=== PATIENT | female | born 1990 | race Caucasian/White ===

== ENCOUNTER 2020-05-28 05:03 | Emergency (ER) | payer BC ==
[2020-05-28] MEDS ORDERED: Fentanyl 100 MCG/2 ML VIAL ONE (05:09)
== END 2020-05-28 07:55 | disposition home or self-care (01) ==
LOC: ERS 05:03
DX: K42.9 Umbilical hernia without obstruction or gangrene (principal); E11.9 Type 2 diabetes mellitus without complications; I10 Essential (primary) hypertension; F17.290 Nicotine dependence, other tobacco product, uncomplicated; Z79.899 Other long term (current) drug therapy
CPT/HCPCS: 83605; 96374; J3010

== ENCOUNTER 2020-06-19 15:31 | Outpatient (CLI) | payer OTHER ==
--- NOTE | 2020-06-19 15:49 | RAD ---
Chest 2 views HISTORY: Cough. COMPARISON: 08/14/2015. FINDINGS: Cardiac silhouette and pulmonary vasculature are unremarkable. Mediastinum is midline. No confluent airspace consolidation, pneumothorax, or pleural fluid. IMPRESSION : No abnormalities are demonstrated.
== END 2020-06-19 15:32 | disposition home or self-care (01) ==
LOC: RAD-FRANK 15:31
PROVIDERS: ATTEND Nurse Practitioner Family
DX: R05 Cough (principal)
CPT/HCPCS: 71046

== ENCOUNTER 2023-05-19 20:13 | Inpatient (IN) | payer BC, SELFPAY ==
[2023-05-19] MEDS ORDERED: Glucagon 1 MG/ML KIT IM PRN (21:20)
[2023-05-19] MEDS ORDERED: Dextrose 5% in Water 1,000 ML IV PRN (21:20)
[2023-05-19] MEDS ORDERED: Ondansetron PF 4 MG/2 ML Vial IVP PRN (21:20)
[2023-05-19] MEDS ORDERED: Dextrose 50% Abboject 50 ML SYRINGE SLOW IVP PRN (21:20)
[2023-05-19] MEDS: D5 1/2 NS w/20 mEq KCL 1,000 ML IV SCH (21:37)
[2023-05-19] MEDS: Morphine 4 MG/ML VIAL SLOW IVP PRN (21:37)
[2023-05-19 22:42] VITALS: BMI 44.1
[2023-05-20] MEDS: Morphine 4 MG/ML VIAL SLOW IVP PRN ×4 (02:00→23:18)
[2023-05-20 05:05] LABS: #Basophils 0.1 thou/uL (0.0-0.2); #Eosinphils 0.5 thou/uL (0.0-0.7); #Monocytes 0.8 thou/uL (0.11-0.59); #Neutrophils 6.3 thou/uL (1.40-6.50); %Basophils 0.5 % (0.0-1.0); %Eosinophils 4.3 % (0.0-10.0); %Lymphocytes 33.9 % (21.0-51.0); %Monocytes 6.6 % (0.0-10.0); %Neutrophils 54.4 % (42.0-75.0); Hematocrit 40.3 % (36.0-47.0); Hemoglobin 13.2 g/dL (12.0-16.0); Mean Corpuscular HGB CONC 32.8 g/dL (32.0-36.0); Mean Corpuscular Hemoglobin 28.3 pg (27.0-31.0); Mean Corpuscular Volume 86.5 fl (78.0-98.0); Mean Platelet Volume 9.8 fL (7.4-10.4); Platelet Count 383 10x3/uL (130-400); RBC Distribution Width 12.5 % (11.5-14.5); Red Blood Cell (RBC) Count 4.66 mill/uL (4.20-5.40); White Blood Cell (WBC) Count 11.6 10x3/uL (4.8-10.8)
[2023-05-20 05:54] LABS: Anion Gap 13 mmol/L (10-20); BUN (Urea Nitrogen) 10 mg/dL (7.0-18.7); Calc. Creatinine Clearance 222 mL/min (70-130); Calcium 8.9 mg/dL (7.8-10.44); Carbon Dioxide 21 mmol/L (22-29); Chloride 105 mmol/L (98-107); Estimated GFR 118; Glucose 185 mg/dL (70-105); Potassium 3.7 mmol/L (3.5-5.1); Sodium 135 mmol/L (136-145)
[2023-05-20] MEDS ORDERED: EPINEPHrine 1 MG/ML VIAL ONE (06:42)
[2023-05-20] MEDS ORDERED: Bupivacaine 0.25% HCL 30 ML VIAL ONE (06:42)
[2023-05-20] MEDS ORDERED: Glucagon 1 MG/ML KIT IM PRN (06:58)
[2023-05-20] MEDS ORDERED: HumaLOG 300 UNITS/3 ML VIAL SC PRN (06:58)
[2023-05-20] MEDS ORDERED: Dextrose 50% Abboject 50 ML SYRINGE SLOW IVP PRN (06:58)
[2023-05-20] MEDS ORDERED: Dextrose 5% in Water 1,000 ML IV PRN (06:58)
[2023-05-20] MEDS ORDERED: Ipratropium/Albuterol 3 ML NEB NEB PRN (06:58)
[2023-05-20] MEDS: D5 1/2 NS w/20 mEq KCL 1,000 ML IV SCH ×2 (07:00→16:19)
[2023-05-20] MEDS ORDERED: Dexamethasone 4 mg/ml Vial ONE (07:17)
[2023-05-20] MEDS ORDERED: Lidocaine 2% PF 5 ML VIAL ONE (07:17)
[2023-05-20] MEDS ORDERED: PROPOFOL 40 ML ONE ×2 (07:17→08:00)
[2023-05-20] MEDS ORDERED: Ondansetron PF 4 MG/2 ML Vial ONE ×2 (07:17→07:38)
[2023-05-20] MEDS ORDERED: Rocuronium Bromide 10 MG/ML (10ML VIAL) ONE ×2 (07:17→07:38)
[2023-05-20] MEDS ORDERED: Albuterol HFA (OR) 200 PUFF INH ONE ×2 (07:17→07:38)
[2023-05-20] MEDS ORDERED: Fentanyl 250 MCG/5 ML VIAL ONE ×2 (07:18→09:58)
[2023-05-20] MEDS ORDERED: Midazolam HCl 2 mg/2 ml Vial ONE (07:22)
[2023-05-20] MEDS ORDERED: CEFAZOLIN 2 GM VIAL ONE (07:25)
[2023-05-20] MEDS ORDERED: Sodium Chloride 0.9% 100 ML ONE (07:26)
[2023-05-20] MEDS ORDERED: diphenhydrAMINE 50 MG/ML VIAL ONE ×2 (07:30→07:38)
[2023-05-20] MEDS ORDERED: SUGAMMADEX SODIUM 200 MG/2 ML VIAL ONE ×2 (07:32→09:07)
[2023-05-20] MEDS ORDERED: Dexamethasone 20 MG/5 ML VIAL ONE (07:38)
[2023-05-20] MEDS ORDERED: PROPOFOL 200 MG/20 ML VIAL ONE (07:38)
[2023-05-20] MEDS ORDERED: Lidocaine 1% PF 5 ML VIAL ONE (07:38)
[2023-05-20] MEDS ORDERED: HYDROmorphone 2 MG/ML VIAL SLOW IVP PRN (08:08)
[2023-05-20] MEDS ORDERED: Promethazine HCl 25 MG/ML VIAL IM PRN (08:08)
[2023-05-20] MEDS ORDERED: Ondansetron HCl/PF 4 MG/2 ML Vial IVP PRN (08:08)
[2023-05-20] MEDS ORDERED: PACU-Morphine 4MG/ML VIAL SLOW IVP PRN (08:08)
[2023-05-20] MEDS ORDERED: Esmolol 100 MG/10 ML VIAL ONE (08:15)
[2023-05-20] MEDS ORDERED: fentaNYL 50 mcg/mL 1 mL Vial ONE ×4 (08:53→10:54)
[2023-05-20] MEDS ORDERED: FLU VACC QS2023-24(6MOS UP)/PF 60 MCG/0.5 ML SYRINGE IM ONE (09:00)
[2023-05-20] MEDS ORDERED: Ipratropium/Albuterol 3 ML NEB ONE (09:05)
[2023-05-20] MEDS ORDERED: Senokot 8.6 MG TAB PO PRN (15:06)
[2023-05-20] MEDS: Acetaminophen 325 MG TAB PO PRN (16:18)
[2023-05-21] MEDS: Morphine 4 MG/ML VIAL SLOW IVP PRN ×3 (03:12→12:20)
[2023-05-21 05:27] LABS: #Eosinphils 0.1 thou/uL (0.0-0.7); #Monocytes 1.2 thou/uL (0.11-0.59); #Neutrophils 13.1 thou/uL (1.40-6.50); %Basophils 0.2 % (0.0-1.0); %Eosinophils 0.5 % (0.0-10.0); %Lymphocytes 16.2 % (21.0-51.0); %Monocytes 6.7 % (0.0-10.0); %Neutrophils 75.9 % (42.0-75.0); Hematocrit 39.4 % (36.0-47.0); Mean Corpuscular Hemoglobin 28.4 pg (27.0-31.0); Mean Corpuscular Volume 86.2 fl (78.0-98.0); Mean Platelet Volume 9.4 fL (7.4-10.4); Platelet Count 373 10x3/uL (130-400); RBC Distribution Width 12.3 % (11.5-14.5); Red Blood Cell (RBC) Count 4.57 mill/uL (4.20-5.40); White Blood Cell (WBC) Count 17.3 10x3/uL (4.8-10.8)
[2023-05-21 06:50] LABS: Anion Gap 15 mmol/L (10-20); BUN (Urea Nitrogen) 7 mg/dL (7.0-18.7); Calc. Creatinine Clearance 225 mL/min (70-130); Carbon Dioxide 22 mmol/L (22-29); Chloride 103 mmol/L (98-107); Estimated GFR 119; Glucose 197 mg/dL (70-105); Potassium 3.8 mmol/L (3.5-5.1); Sodium 136 mmol/L (136-145)
[2023-05-21 08:05] VITALS: TEMP 97.7
[2023-05-21] MEDS ORDERED: Calcium Carbonate 500 MG ChewTAB PO SCH (09:00)
[2023-05-21] MEDS: Acetaminophen 325 MG TAB PO PRN (12:22)
[2023-05-21 12:56] VITALS: BP 131/85
[2023-05-21] MEDS ORDERED: Acetaminophen/Codeine 30-300mg Tablet PO PRN (12:58)
== END 2023-05-21 14:41 | disposition home or self-care (01) | DRG 354 ==
LOC: SJJU 20:15 → OBSVTOIN 05-20 06:58
PROVIDERS: ADMIT Student in an Organized Health Care Education/Training Program; ATTEND Student in an Organized Health Care Education/Training Program
PROC: 0WUF0JZ Supplement Abdominal Wall with Synthetic Substitute, Open Approach (ICD-10-PCS; principal; 2023-05-20)
DX: K42.0 Umbilical hernia with obstruction, without gangrene (principal); Z68.41 Body mass index [BMI] 40.0-44.9, adult; F17.210 Nicotine dependence, cigarettes, uncomplicated; E66.9 Obesity, unspecified; E11.9 Type 2 diabetes mellitus without complications; Z79.84 Long term (current) use of oral hypoglycemic drugs; Z88.2 Allergy status to sulfonamides; Z88.8 Allergy status to other drugs, medicaments and biological substances
CPT/HCPCS: 36415; 36416; 80048; 85025; 88302; J0171; J1100; J1200; J1815; J2001; J2250; J2270; J2405; J2704; J3010; J3480; J3490; J7620; S0020